=== PATIENT | female | born 1980 | race Asian ===

== ENCOUNTER 2016-08-23 12:40 | Observation (INO) | payer MEDICAID ==
[~2016-08-23] VITALS: Ht 162.6 cm; Wt 82.1 kg
[~2016-08-23 12:40] MED LIST: GLYB1TAB2 PO; PNV1TABL17 PO
[2016-08-23 13:10] VITALS: BP 105/71
[2016-08-23 13:57] LABS: GLUCOSE,POINT OF CARE 81 MG/DL (70-110)
[2016-08-24] MEDS ORDERED: METF500T4 PO (13:13)
== END 2016-08-23 15:45 | disposition home or self-care (01) ==
LOC: 4S 12:40
PROVIDERS: ADMIT Obstetrics & Gynecology; ATTEND Obstetrics & Gynecology
DX: O24.419 Gestational diabetes mellitus in pregnancy, unspecified control (principal); O09.523 Supervision of elderly multigravida, third trimester; Z3A.37 37 weeks gestation of pregnancy
CPT/HCPCS: 36415; 82962; 83036; G0378

== ENCOUNTER 2016-08-31 14:42 | Emergency (ER) | payer MEDICAID ==
[~2016-08-31] VITALS: Ht 165.1 cm; Wt 68.2 kg
[~2016-08-31 14:42] MED LIST changes: +DSS100 PO; +FERR-89 PO; -GLYB1TAB2 PO; +PERCT PO
[2016-08-31] MEDS ORDERED: IBUP-1547 PO (15:28)
[2016-08-31] MEDS ORDERED: MAGN296S PO (15:32)
[2016-08-31 18:22] LABS: APPEARANCE,URINE CLOUDY (CLEAR); GLUCOSE, URINE (UA) NEGATIVE (NEGATIVE); KETONES,URINE NEGATIVE (NEGATIVE); LEUKOCYTE ESTERASE ,URINE MODERATE (NEGATIVE); OCCULT BLOOD,URINE LARGE (NEGATIVE); PROTEIN,URINE NEGATIVE (NEGATIVE)
[2016-08-31 18:26] LABS: RBC,URINE 51-100 /HPF (0-2); SQUAMOUS EPITHELIAL CELL,UR Few /LPF (None Seen)
[2016-08-31 18:51] VITALS: BP 116/73
== END 2016-08-31 18:53 | disposition home or self-care (01) ==
LOC: EMS 14:44
DX: O72.1 Other immediate postpartum hemorrhage (principal); O86.20 Urinary tract infection following delivery, unspecified; K59.00 Constipation, unspecified; E78.00 Pure hypercholesterolemia, unspecified
CPT/HCPCS: 87086; 99284